=== PATIENT | male | born 2000 | race Caucasian/White ===

== ENCOUNTER 2020-11-23 14:32 | Emergency (ER) | payer BC ==
[~2020-11-23] VITALS: Ht 185.4 cm; Wt 68.5 kg
[2020-11-23 14:32] VITALS: BP 140/83
--- NOTE | 2020-11-23 14:33 | NUR ---
BIBA TO BED 10
--- NOTE | 2020-11-23 14:35 | NUR ---
20 Y/O MALE BIBA FROM HOME C/O WITNESSED TONIC-CLONIC SEIZURE FOR X3 MINS. PT WAS SITTING WHEN SEIZURE HAPPENED, FELL, AND HIT HIS HEAD. +LOC. NO ORAL TRAUMA OR INCONTINENCE NOTED. PT A/O X4. DENIES ANY PAIN. PT HAD SYNCOPAL EPISODE X1 MONTH AGO AND WAS TAKEN TO [facility]. LAST SZ 17 YRS AGO. PT DOESNT TAKE ANY MEDS FOR SEIZURES. PT A/O X4 WITH EVEN AND UNLABORED RESPIRATIONS. BED IN LOWEST POSITION, BRAKES LOCKED, X2 SIDERAILS UP FOR SAFETY. PT ON MONITOR. FATHER AT BEDSIDE. PMH:BLOOD CLOTTING DISORDER, SZ, HARM OCD, DVT, PE ALLERGIES:CODEINE AND MORPHINE MEDS:XARELTO, OLANZAPINE, FLUOXETINE
--- NOTE | 2020-11-23 14:40 | NUR ---
20 G IV ESTABLISHED TO R AC. BLOOD SAMPLES COLLECTED VIA IV. SAMPLES GIVEN TO DOUBLE BACK OPERATOR
--- NOTE | 2020-11-23 14:49 | NUR ---
EMT AT BEDSIDE FOR EKG
--- NOTE | 2020-11-23 14:53 | NUR ---
PT TAKEN TO CT VIA JW
--- NOTE | 2020-11-23 15:07 | NUR ---
PT BACK FROM CT AND CONNECTED TO MONITOR
[2020-11-23 15:42] LABS: BASOPHILS % (AUTO) 0.2 % (0.0-2.0); EOSINOPHILS % (AUTO) 0.1 % (0.0-4.0); HEMATOCRIT 41.5 % (36-52); HEMOGLOBIN 13.8 g/dL (12.0-18.0); LYMPHOCYTES # (AUTO) 1.3 K/uL (2.0-11.5); LYMPHOCYTES % (AUTO) 15.3 % (20.5-51.1); MEAN CORPUSCULAR HEMOGLOBIN 28 pg (27-31); MEAN CORPUSCULAR HGB CONC 33 g/dL (33-37); MEAN CORPUSCULAR VOLUME 83.8 fL (80-94); MONOCYTES # (AUTO) 0.4 K/uL (0.8-1.0); MONOCYTES % (AUTO) 4.9 % (1.7-9.3); NEUTROPHILS # (AUTO) 6.5 K/uL (1.8-7.7); NEUTROPHILS % (AUTO) 79.5 % (42.2-75.2); PLATELET COUNT (AUTO) 348 K/uL (140-450); RED BLOOD CELL COUNT(AUTO) 4.95 MIL/uL (4.20-6.10); RED CELL DISTRIBUTION WIDTH 14.4 % (11.6-13.7); WHITE BLOOD COUNT (AUTO) 8.2 K/uL (4.5-11.0)
[2020-11-23] MEDS ORDERED: AZIT250T4 PO (15:44)
[2020-11-23 16:08] LABS: ALBUMIN 4.5 g/dL (3.4-5.0); ANION GAP 19.3 (8-16); ASPARTATE AMINOTRANSFERASE 21 U/L (15-37); CARBON DIOXIDE 20.7 mmol/L (21-32); CHLORIDE 101 mmol/L (98-107); CREATININE 1.1 mg/dL (0.6-1.3); GFR ARICAN-AMERICAN 110 mL/min (>90); GLUCOSE 93 mg/dL (74-106); SODIUM SERUM 137 mmol/L (136-145); TOTAL BILIRUBIN 0.2 mg/dL (0.0-1.0); UREA NITROGEN, BLOOD 12 mg/dL (7-18)
[2020-11-23 16:13] LABS: ACETAMINOPHEN < 0.5 ug/ml (10-30); SALICYLATE < 2.8 mg/dL (2.8-20.0)
--- NOTE | 2020-11-23 16:32 | NUR ---
Patient discharged with v/s stable. Written and verbal after care instructions MEDICATION, SEIZURE,COMMUNITY-ACQUIRED PNEUMONIA given and explained. Patient alert, oriented and verbalized understanding of instructions. Ambulatory with steady gait. All questions addressed prior to discharge. ID band removed. Patient advised to follow up with PMD. Rx of AZITHROMYCIN given. Patient educated on indication of medication including possible reaction and side effects. Opportunity to ask questions provided and answered.
[2020-11-23 16:40] VITALS: BP 140/83
== END 2020-11-23 16:33 | disposition home or self-care (01) ==
LOC: MED 14:32
DX: R56.9 Unspecified convulsions (principal); J18.9 Pneumonia, unspecified organism; Z88.5 Allergy status to narcotic agent
CPT/HCPCS: 36415; 70450; 71045; 80053; 85025; 93005; 99285; G0480; G0482